=== PATIENT | male | born 1980 | race Two or more races ===

== ENCOUNTER → 2018-03-04 | Outpatient (CLI) | payer OTHER ==
[2018-03-04 13:09] LABS: ALBUMIN 4.3 g/dL (3.4-5.0); BILIRUBIN, DIRECT 0.2 mg/dL (0.1-0.2)
[2018-03-04 13:12] LABS: BILIRUBIN,INDIRECT 0.8 mg/dL (0.0-2.0); TOTAL PROTEIN 7.9 g/dL (6.4-8.2)
== END | disposition home or self-care (01) ==
LOC: CFH 10:51
PROVIDERS: ATTEND Podiatrist
DX: B35.1 Tinea unguium (principal); Z79.899 Other long term (current) drug therapy
CPT/HCPCS: 36415; 80076

== ENCOUNTER 2020-04-11 18:13 | Emergency (ER) | payer OTHER ==
[~2020-04-11] VITALS: Ht 165.1 cm; Wt 92.4 kg
[2020-04-11] MEDS ORDERED: ONDANSETRON 2MG/ML, 2ML IVPush ONE (18:30)
[2020-04-11] MEDS ORDERED: SODIUM CHLORIDE FLUSH 10ML SYR IVF ONE (18:30)
[2020-04-11] MEDS ORDERED: HYDROmorphone 1 MG/ML, 1ML INJ ONE ×3 (18:54→21:07)
[2020-04-11] MEDS ORDERED: ONDANSETRON 2MG/ML, 2ML ONE (18:54)
[2020-04-11 18:56] LABS: BASOPHILS % (AUTO) 0 % (0-1); EOSINOPHILS % (AUTO) 0 % (1-7); LYMPHOCYTES % (AUTO) 8 % (22-44); MEAN CORPUSCULAR HEMOGLOBIN 31.5 pg (27.5-34.5); MEAN CORPUSCULAR HGB CONC 34.1 g/dL (33.2-36.2); MONOCYTES % (AUTO) 4 % (2-9); NEUTROPHILS % (AUTO) 87 % (42-75); PLATELET COUNT 215 x10^3/uL (130-400); RED BLOOD COUNT 5.21 x10^6/uL (4.38-5.82); RED CELL DISTRIBUTION WIDTH 13.1 % (9.4-14.8)
--- NOTE | 2020-04-11 19:00 | NUR ---
REPORT FROM VINNIE JOHNSON
[2020-04-11 19:04] LABS: ALANINE AMINOTRANSFERASE 86 U/L (12-78); ALBUMIN 4.5 g/dL (3.4-5.0); ANION GAP 3 mmol/L (5-15); CALCIUM 9.4 mg/dL (8.5-10.1); CHLORIDE 112 mmol/L (98-107); CREATININE 1.23 mg/dL (0.7-1.3)
[2020-04-11 19:07] LABS: ALKALINE PHOSPHATASE 52 U/L (45-117); BILIRUBIN,TOTAL 0.9 mg/dL (0.2-1.0); TOTAL PROTEIN 7.8 g/dL (6.4-8.2)
[2020-04-11] MEDS: HYDROmorphone 2 MG/ML, 1ML IVPush PRN ×2 (19:07→19:36)
--- NOTE | 2020-04-11 19:10 | NUR ---
PT MEDICATED PER EMAR, PROVIDED WITH URINAL AND ASKED TO OBTTAIN URINE SAMPLE.
[2020-04-11 19:36] LABS: MD SCAN
[2020-04-11 20:02] LABS: MICROSCOPIC AUTO
[2020-04-11] MEDS ORDERED: HYDROmorphone 2 MG/ML, 1ML IVPush PRN (21:00)
[2020-04-11] MEDS ORDERED: KETOROLAC 30 MG/1 ML ONE (21:15)
[2020-04-11] MEDS ORDERED: KETOROLAC 30 MG/1 ML IVPush ONE (21:30)
[2020-04-11 21:52] VITALS: BP 121/61
== END 2020-04-11 22:37 | disposition home or self-care (01) ==
LOC: ED 20:34
DX: N13.2 Hydronephrosis with renal and ureteral calculous obstruction (principal)
CPT/HCPCS: 36415; 74176; 80053; 81001; 83690; 85025; 96374; 96375; 96376; 99284; J1170; J1885; J2405